=== PATIENT | male | born 1945 | race Caucasian/White ===

== ENCOUNTER 2016-09-19 11:32 | Emergency (ER) | payer OTHER, MEDICARE ==
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
== END 2016-09-19 12:43 | disposition disaster alternative care site (69) ==
LOC: GACC 11:32
PROC: 0HQNXZZ Repair Left Foot Skin, External Approach (ICD-10-PCS; principal; 2016-09-19)
DX: S91.332A Puncture wound without foreign body, left foot, initial encounter (principal); Z23 Encounter for immunization; W27.2XXA Contact with scissors, initial encounter

== ENCOUNTER → 2016-09-19 | Outpatient (CLI) | payer OTHER, MEDICARE | END | disposition disaster alternative care site (69) | LOC: GAMB 11:18 | DX: S91.312A Laceration without foreign body, left foot, initial encounter (principal); S99.922A Unspecified injury of left foot, initial encounter; E11.9 Type 2 diabetes mellitus without complications; Z79.4 Long term (current) use of insulin; W31.89XA Contact with other specified machinery, initial encounter | CPT/HCPCS: A0425; A0429 ==

== ENCOUNTER 2016-09-20 08:43 | Emergency (ER) | payer MEDICARE, OTHER ==
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
== END 2016-09-20 09:19 | disposition disaster alternative care site (69) ==
LOC: GMED 08:43
DX: S91.312D Laceration without foreign body, left foot, subsequent encounter (principal); X58.XXXD Exposure to other specified factors, subsequent encounter